=== PATIENT | female | born 1975 | race Caucasian/White ===

== ENCOUNTER 2020-10-29 11:13 | Emergency (ER) | payer SELFPAY ==
[2020-10-29 11:16] VITALS: BP 201/111; PULSE 88; RESP 18; TEMP 36.7; O2SAT 99; BMI 31.1
[2020-10-29 11:38] VITALS: BP 203/120; PULSE 92; RESP 16; TEMP 37.1; O2SAT 98
--- NOTE | 2020-10-29 11:46 | ED_ITS ---
HPI - Wound/Laceration General Chief Complaint: General Medical Stated Complaint: THUMB LACERATION Time Seen by Provider: 10/29/20 11:45 Source: patient Mode of arrival: ambulatory Limitations: no limitations History of Present Illness HPI narrative: 45-year-old female sustained an avulsion laceration to her left thumb approximately 2 days ago when she was peeling a Mandarin with a cutter. She reports that she was unable to take off the Band-Aid that she placed and came here for us to remove the Band-Aid. Denies any other symptoms complaints or concerns at this time. Related Data Allergies Allergy/AdvReac Type Severity Reaction Status Date / Time penicillin V Allergy Intermediate Unknown Verified 10/29/20 11:16 Review of Systems Review of Systems: Constitutional : No Fever, No Chills, Cardiovascular : No Chest Pain, No SOB Respiratory : No Dyspnea Gastrointestinal : No abdominal pain Musculoskeletal : No Joint Swelling Skin : positive skin laceration, No Foreign bodies, No rash, No surrounding erythema Neuro : No Weakness, No Numbness/tingling Psych : No SI/HI/thoughts of self injury Yes all other systems are reviewed and are negative [facility] Past Medical History Attestation statement: The following information was validated with the patient. Medical History No active medical problems Family History Family History Father HTN (hypertension) Mother No problems noted. Maternal Grandfather No problems noted. Maternal Grandmother No problems noted. Paternal Grandfather No problems noted. Paternal Grandmother No problems noted. Social History Social History Alcohol intake: current Advance Directives: Yes Advance Directives Information Provided: Yes Advance Directives on File: No Patient : No Physical Exam Vital Signs: Vital Signs: Last Vital Signs Temp 98.8 F 10/29/20 11:38 Pulse 92 10/29/20 11:38 Resp 16 10/29/20 11:38 BP 203/120 H 10/29/20 11:38 Pulse Ox 98 10/29/20 11:38 Body Mass Index 31.1 vital signs have been reviewed as normal and appeared to be correct. Blood pressure hypertensive 201/111 Heart rate normal. Respiration rate normal. Temperature normal. Oxygen saturation normal. Appearance: Alert. Oriented X3. No acute distress. Head: Normal external exam. Normocephalic. Atraumatic. Eyes: PERRLA. EOMI. Conjunctiva and sclera normal. Eyelids normal. ENT: EAC normal. TM's Normal. Pharynx normal. Uvula midline. Moist mucous membranes. . Neck: Normal inspection. Neck supple. FROM. No adenopathy. No meningeal signs. CVS: Normal heart rate and rhythm. Heart sound normal. Pulses normal throughout. No murmurs/rales/gallops. Respiratory: No respiratory distress. Painless inspiration. Back: Full range of motion noted. No rashes/lesion/induration/fluctuance or signs of infection noted. Skin: Superficial avulsion lacerations circular in aspect less than 1 cm to the radial aspect of the left thumb no active bleeding or foreign bodies or signs of infection noted. The rest of the Skin warm and dry. Normal skin color. Normal skin turgor. No additional rashes/lesions/lacerations noted. Extremities: Extremities exhibit normal range of motion. Extremities nontender. Neuro: Oriented X 3. No motor deficit. No sensory deficit. Reflexes normal. Normal steady gait. No focal neuro deficits noted. Vascular: + radial pulses. Normal cap refill. No cyanosis noted to upper extremity nails. Course Course Course Narrative: 45-year-old female presenting to the ED after an avulsion laceration to her left thumb approximately 2 days ago she was unable to remove the bandage at home. She is now status post removal after we soaked her finger and normal standing for approximately 20-30 minutes. She tolerated procedure well. She was noted to be hypertensive at 201/111 although she reports that usually when she comes to the hospital she is anxious and she is asymptomatic from this blood pressure and she denies being on any blood pressure medication. Will re-evaluate. She denies any other symptoms complaints or concerns at this time. Therefore at this time patient will be discharged with instructions to return if any new or worsening symptoms to follow up with primary care provider. Patient understands agrees with this plan. Discharge Plan Discharge Clinical Impression: Finger laceration Patient Disposition: Home, Self-Care Instructions: Finger Laceration (ED), Laceration Without Closure (ED) Referrals: Urbano Blevins FNP-BC [Primary Care Provider] - 2 days Print Language: Cymro
== END 2020-10-29 11:55 | disposition home or self-care (01) ==
PROVIDERS: Emergency Provider Emergency Medicine; PCP Nurse Practitioner Family
DX: S61.012A Laceration without foreign body of left thumb without damage to nail, initial encounter (principal); W27.4XXA Contact with kitchen utensil, initial encounter; Y93.89 Activity, other specified; Y92.019 Unspecified place in single-family (private) house as the place of occurrence of the external cause; Y99.9 Unspecified external cause status
CPT/HCPCS: 99283

== ENCOUNTER 2021-03-20 14:07 | Emergency (ER) | payer SELFPAY ==
[2021-03-20 14:19] VITALS: BP 155/111; PULSE 105; RESP 20; TEMP 36.9; O2SAT 100; BMI 31.1
== END 2021-03-20 19:16 | disposition left against medical advice (07) ==
PROVIDERS: Emergency Provider Emergency Medicine
DX: R10.9 Unspecified abdominal pain (principal); R20.0 Anesthesia of skin
CPT/HCPCS: 99281

== ENCOUNTER 2021-11-26 14:41 | Outpatient (REF) | payer OTHER, SELFPAY ==
--- NOTE | ~2021-11-26 | XR_ITS ---
EXAMINATION: XR HIP, RIGHT CLINICAL INFORMATION: Right hip pain. COMPARISON: CT of 02/15/2006. TECHNIQUE: Two views of the right hip. FINDINGS: There is no evidence of acute fracture or dislocation of the right hip. The right hip joint space is maintained. There is mild collar spurring. There is spurring with dystrophic calcification about the greater trochanter. XR/XR hip RT 1V IMPRESSION: 1. No significant abnormality of the right hip joint. 2. Calcification about the greater trochanter.
[2021-11-26 16:44] LABS: Appearance Urine Turbid; Color Urine Dark Yellow; Glucose Urine UA Negative (Negative); Leukocyte Esterase Urine Moderate (2+) (Negative); Nitrite Urine Negative (Negative); PH 5.5 (5.0-8.0); Specific Gravity - Urine >= 1.030 (1.005-1.025); Urine Blood Negative (Negative); Urine Ketones Trace mg/dL (Negative); Urine Protein 30 (1+) mg/dL (Neg-Trace)
[2021-11-26 18:14] LABS: Bacteria Urine 4+ (None Seen); Calcium Oxalate Crystals Urine Present; RBC Urine 0-2 /HPF (0-2); Squamous Epithelial Cell Urine >20 /HPF (0-2); UACC Culture Trigger YES; WBC Urine 21-50 /HPF (0-5); Waxy Casts Urine Present
[2021-11-26 18:20] LABS: Hyaline Casts Urine 0-2 /LPF (0-2)
== END 2021-11-26 14:42 | disposition home or self-care (01) ==
LOC: HO.XRAY 14:41
PROVIDERS: Absent Provider Nurse Practitioner Family; Visit Provider Physician Assistant
DX: M25.551 Pain in right hip (principal); R32 Unspecified urinary incontinence
CPT/HCPCS: 73501; 81001; 81003; 87086

== ENCOUNTER 2022-01-19 | Outpatient (REF) | payer OTHER, SELFPAY | END 2022-01-19 00:01 | disposition home or self-care (01) | LOC: HO.HOSX | PROVIDERS: Visit Provider Physician Assistant | DX: Z13.89 Encounter for screening for other disorder (principal) ==

== ENCOUNTER 2022-03-03 16:34 | Outpatient (REF) | payer OTHER, SELFPAY | END 2022-03-03 16:35 | disposition home or self-care (01) | LOC: HO.MRI 16:34 | PROVIDERS: Visit Provider Physician Assistant | DX: Z13.89 Encounter for screening for other disorder (principal) ==

== ENCOUNTER 2022-03-24 11:04 | Outpatient (REF) | payer OTHER, SELFPAY ==
--- NOTE | ~2022-03-24 | MR_ITS ---
EXAMINATION: MR BRAIN WITHOUT CONTRAST CLINICAL INFORMATION: Anoxic brain injury. COMPARISON: CT head from 05/27/2018. TECHNIQUE: MRI of the brain was obtained using routine sequences without contrast. FINDINGS: No focal restricted diffusion is demonstrated to suggest acute or subacute cerebral ischemia. No evidence of acute or chronic hemorrhagic products on heme-sensitive imaging. Mild nonspecific scattered periventricular and deep white matter T2 FLAIR hyperintensities consistent. Proportional prominence of the ventricles and sulcal spaces without evidence of obstructive hydrocephalus. No abnormal mass effect. No midline shift. Normal appearance of the pituitary gland. Normal positioning of the cerebellar tonsils. Normal arterial and venous vascular flow voids are present. Normal, homogeneous marrow signal. Mild degenerative spondyloarthropathy of the visualized upper cervical spine. Mild mucosal thickening of the paranasal sinuses. Small right-sided mastoid effusion. No signal abnormalities within the left-sided mastoid. MR/MR head/brain wo con IMPRESSION: 1. No acute intracranial abnormalities. 2. Nonspecific mild chronic white matter changes.
== END 2022-03-24 11:05 | disposition home or self-care (01) ==
LOC: HO.MRI 11:04
PROVIDERS: Visit Provider Physician Assistant
DX: G93.1 Anoxic brain damage, not elsewhere classified (principal)
CPT/HCPCS: 70551

== ENCOUNTER 2022-04-01 16:17 | Emergency (ER) | payer OTHER, SELFPAY ==
--- NOTE | ~2022-04-01 | XR_ITS ---
EXAMINATION: XR FOREARM, LEFT CLINICAL INFORMATION: Fall, humeral neck fracture COMPARISON: None TECHNIQUE: AP and lateral views of the left forearm were obtained. FINDINGS: The bones and soft tissues are normal. No fracture. Imaged portions of the elbow and wrist are unremarkable. XR/XR forearm LT 2V IMPRESSION: Normal left forearm.
--- NOTE | ~2022-04-01 | CT_ITS ---
EXAMINATION: CT HEAD WITHOUT CONTRAST CLINICAL INFORMATION: Fall, hit head, no memory COMPARISON: Brain MRI 03/24/2022, head CT 05/27/2018 TECHNIQUE: Imaging was performed from the skull base to vertex without intravenous administration of contrast. This CT examination was performed using dose optimization techniques as appropriate, variously including the following: *Automated exposure control *Adjustment of mA and/or kV according to patient size (this includes techniques or standardized protocols for targeted exams where dose is matched to indication/reason for exam; i.e. extremities or head) *Use of iterative reconstruction technique Total exam dose length product: 703 mGy-cm FINDINGS: No intra or extra-axial fluid collection, hemorrhage, or mass. No ventriculomegaly. No midline shift or herniation. Basal cisterns are patent. Beach-white matter differentiation is maintained. No territorial encephalomalacia. No significant volume loss. There is no abnormal attenuation within the brain parenchyma. No calvarial fracture or soft tissue abnormality. The mastoid air cells and visualized portions of the paranasal sinuses are well aerated. CT/CT head/brain wo IV con IMPRESSION: 1. No acute intracranial pathology.
--- NOTE | ~2022-04-01 | XR_ITS ---
EXAMINATION: XR SHOULDER, LEFT CLINICAL INFORMATION: Left shoulder pain status post fall. COMPARISON: None TECHNIQUE: Three views of the left shoulder. FINDINGS: There is an acute, mildly displaced left humeral surgical neck fracture with mild superomedial displacement of the distal fragment. The left glenohumeral and acromioclavicular joints are intact. The visualized left ribs are intact. The soft tissues are unremarkable. XR/XR shoulder LT min 2V IMPRESSION: Acute, mildly displaced left humeral surgical neck fracture.
--- NOTE | ~2022-04-01 | XR_ITS ---
EXAMINATION: LEFT ELBOW AND LEFT CLAVICLE CLINICAL INFORMATION: Fracture surgical neck humerus COMPARISON: Left shoulder 04/01/2022 at 5:16 PM TECHNIQUE: 2 views left clavicle and 2 views left elbow FINDINGS: Left elbow: There is no visible acute fracture, dislocation or subluxation seen. Left clavicle: There is a mildly displaced surgical neck fracture left humerus without dislocation. The AC joint and the sternal clavicular joints appear intact. The clavicle is intact. No fractures involving first left 4 ribs. XR/XR clavicle LT IMPRESSION: No abnormality seen involving the left elbow lower leg views are suboptimal due to left humeral neck fracture. Acute mildly displaced left humeral neck fracture. The clavicle, visualized scapula and first left 4 ribs are normal.
--- NOTE | ~2022-04-01 | XR_ITS ---
EXAMINATION: XR CHEST CLINICAL INFORMATION: Cough COMPARISON: None TECHNIQUE: Frontal view of the chest was obtained. FINDINGS: No significant abnormality is noted involving the heart, lungs, mediastinum, bony thorax or soft tissues. There is a left chest single lead cardiac ICD. Partial visualization of the left shoulder fracture. XR/XR chest 1V IMPRESSION: No acute disease. Please see the concurrently performed shoulder x-ray for additional information.
--- NOTE | ~2022-04-01 | XR_ITS ---
EXAMINATION: LEFT ELBOW AND LEFT CLAVICLE CLINICAL INFORMATION: Fracture surgical neck humerus COMPARISON: Left shoulder 04/01/2022 at 5:16 PM TECHNIQUE: 2 views left clavicle and 2 views left elbow FINDINGS: Left elbow: There is no visible acute fracture, dislocation or subluxation seen. Left clavicle: There is a mildly displaced surgical neck fracture left humerus without dislocation. The AC joint and the sternal clavicular joints appear intact. The clavicle is intact. No fractures involving first left 4 ribs. XR/XR elbow LT min 3V IMPRESSION: No abnormality seen involving the left elbow lower leg views are suboptimal due to left humeral neck fracture. Acute mildly displaced left humeral neck fracture. The clavicle, visualized scapula and first left 4 ribs are normal.
[2022-04-01 16:18] VITALS: BP 132/87; PULSE 89; RESP 18; TEMP 36.9; O2SAT 100; BMI 27.4
--- NOTE | 2022-04-01 16:23 | ED.FALL ---
HPI - Fall General Chief Complaint: Fall <Debbie Craig NP - Last Filed: 04/01/22 16:34> Stated Complaint: fall down stairs left arm pain 04/01 <Debbie Craig NP - Last Filed: 04/01/22 16:34> Time Seen by Provider: 04/01/22 16:48 <Debbie Craig NP - Last Filed: 04/01/22 16:34> Source: patient <PATEL Rutledge - Last Filed: 04/01/22 19:04> Mode of arrival: ambulatory <PATEL Rutledge - Last Filed: 04/01/22 19:04> History of Present Illness HPI Narrative: 47-year-old female with a past medical history of asthma, seizure disorder, VFib arrest with anoxic brain injury, ETOH abuse disorder, HTN, presenting to ED with mother complaining of left arm pain s/p fall down 3 stairs on (4 days ago). Patient does not remember fall (baseline), was unwitnessed. Unknown head trauma, mother denies LOC. mother also reports cough x months. Denies fever, chills, SOB/CP, abdominal pain, neck/back pain <PATEL Rutledge - Last Filed: 04/01/22 19:04> MD complaint: fall <PATEL Rutledge - Last Filed: 04/01/22 19:04> Onset (ago): day(s) <PATEL Rutledge - Last Filed: 04/01/22 19:04> Related Data Home Medications: Previous Rx's Medication Instructions Recorded cyclobenzaprine 5 mg tablet 5 mg PO BEDTIME PRN muscle spasm 10/28/21 #7 tabs albuterol sulfate 90 mcg/actuation 1 inh inhalation QID PRN shortness 01/28/22 aerosol inhaler of breath or wheezing 30 days #8.5 grams lisinopril 5 mg tablet 5 mg PO DAILY 90 days #90 tabs 01/28/22 miscellaneous medical supply #1 ea 01/28/22 (Blood Pressure Cuff) <Debbie Craig NP - Last Filed: 04/01/22 16:34> Allergies/Adverse Reactions: Allergies Allergy/AdvReac Type Severity Reaction Status Date / Time penicillin V Allergy Intermediate Unknown Verified 01/28/22 15:11 <Debbie Craig NP - Last Filed: 04/01/22 16:34> Review of Systems Review of Systems: Constitutional: No Fever Cardiovascular: No Chest Pain, No SOB Respiratory: + Cough, No Sputum Gastrointestinal: No Nausea, No Vomiting, No Abdominal pain Musculoskeletal: + joint pain, No Myalgias, + Joint Swelling Skin: No Skin Lesions, No rash Neuro: No Loss of Consciousness ROS limited due to patient's baseline mental status/memory loss. Most history obtained from mother <PATEL Rutledge - Last Filed: 04/01/22 19:04> Yes all other systems are reviewed and are negative <PATEL Rutledge - Last Filed: 04/01/22 19:04> Constitutional: Constitutional: Reports as per HPI <PATEL Rutledge - Last Filed: 04/01/22 19:04> [facility], [facility] Past Medical History Attestation statement: The following information was validated with the patient. <PATEL Rutledge - Last Filed: 04/01/22 19:04> Medical History: Medical History Alcohol withdrawal No active medical problems Ventricular fibrillation <Debbie Craig NP - Last Filed: 04/01/22 16:34> Family History Family History: Family History Father HTN (hypertension) Mother No problems noted. Maternal Grandfather No problems noted. Maternal Grandmother No problems noted. Paternal Grandfather No problems noted. Paternal Grandmother No problems noted. <Debbie Craig NP - Last Filed: 04/01/22 16:34> Social History Social History: Social History Alcohol intake: current Alcohol intake frequency: 3 or more drinks per day Alcohol type: beer Patient Tobacco Use Status: Current everyday Tobacco user Tobacco use type: Cigarette Cigarettes Per Day: 2 Advance Directives: Yes Advance Directives on File: Yes Advance Directives Date on File: 08/26/21 Current occupational status: disabled Cognitive needs: No Hearing needs: No Vision needs: No <Debbie Craig NP - Last Filed: 04/01/22 16:34> Physical Exam Vital Signs: Vital Signs: Last Vital Signs Temp 98.4 F 04/01/22 16:18 Pulse 89 04/01/22 16:18 Resp 18 04/01/22 16:18 BP 132/87 04/01/22 16:18 Pulse Ox 100 04/01/22 16:18 O2 Del Method 04/01/22 16:18 BMI result Body Mass Index 27.4 <Debbie Craig NP - Last Filed: 04/01/22 16:34> Vital Signs: Last Vital Signs Temp 98.4 F 04/01/22 16:18 Pulse 89 04/01/22 16:18 Resp 18 04/01/22 16:18 BP 132/87 04/01/22 16:18 Pulse Ox 100 04/01/22 16:18 O2 Del Method 04/01/22 16:18 BMI result Body Mass Index 27.4 <PATEL Rutledge - Last Filed: 04/01/22 19:04> Const: General: cooperative, comfortable and no acute distress <PATEL Rutledge - Last Filed: 04/01/22 19:04> Limitations: no limitations <PATEL Rutledge - Last Filed: 04/01/22 19:04> HEENT: Head: Yes normal to inspection, Yes atraumatic, No contusion and No hematoma <PATEL Rutledge - Last Filed: 04/01/22 19:04> Ears: hearing grossly normal bilaterally <PATEL Rutledge - Last Filed: 04/01/22 19:04> General nose exam: Normal external nose present <PATEL Rutledge - Last Filed: 04/01/22 19:04> Face and sinus: Yes normal facial exam <PATEL Rutledge - Last Filed: 04/01/22 19:04> Throat: Yes posterior oropharynx normal <PATEL Rutledge - Last Filed: 04/01/22 19:04> Eyes: General: appearance normal, both eyes and all related structures <PATEL Rutledge - Last Filed: 04/01/22 19:04> EOM: EOMs intact bilaterally <Courtney Poulrickyt, PA - Last Filed: 04/01/22 19:04> Neck: Neck: Yes normal visual inspection and Yes no meningeal signs <Courtney Poulrickyt, PA - Last Filed: 04/01/22 19:04> Chest: Chest palpation & inspection: normal inspection of the chest and no crepitus <Courtney Poulrickyt, PA - Last Filed: 04/01/22 19:04> Resp: Effort & Inspection: normal respiratory effort and no respiratory distress <Courtney Pouliot, PA - Last Filed: 04/01/22 19:04> Auscultation: clear to auscultation bilaterally, no crackles, no rales and no rhonchi <Courtney Pouliot, PA - Last Filed: 04/01/22 19:04> Cardio: Rate: regular rate <Courtney Poulrickyt, PA - Last Filed: 04/01/22 19:04> Heart sounds: S1 normal heart sound present and S2 normal heart sound present <Courtney Poulrickyt, PA - Last Filed: 04/01/22 19:04> GI: Inspection: Yes normal to inspection <Courtney Poulrickyt, PA - Last Filed: 04/01/22 19:04> Palpation (GI): Soft to palpation, nontender, no guarding and not rigid <Courtney Poulrickyt, PA - Last Filed: 04/01/22 19:04> Back/Spine/Pelvis: Other: No midline thoracic/lumbar spinous tenderness/step-off or deformity <Courtney Poulrickyt, PA - Last Filed: 04/01/22 19:04> Skin: Rashes: no rashes <Courtney Poulrickyt, PA - Last Filed: 04/01/22 19:04> Wounds: no wounds <Courtney Poulrickyt, PA - Last Filed: 04/01/22 19:04> Neuro: General: gait normal, tone normal, moves all extremities and no meningeal signs <Courtney Poulrickyt, PA - Last Filed: 04/01/22 19:04> Gait exam (Neuro): Normal gait present <Courtney Poulrickyt PA - Last Filed: 04/01/22 19:04> Extrem: Other: Left shoulder with notable swelling and healing ecchymosis. Very tender to palpation. Limited ROM to RUE secondary to pain. Neurovascular intact distally. + tenderness to humerus & elbow. Hand/digits nontender <PATEL Rutledge - Last Filed: 04/01/22 19:04> Course Course Course Narrative: This is a rapid medical exam. Deferred additional HPI, ROS, PE to primary provider. This is a 47-year-old female with history of asthma, seizure disorder, history of VFib arrest anoxic brain injury, history of alcohol use disorder with dependency, hypertension who presents with complaints of fall. Per patient she fell down a flight of stairs today. Patient has poor memory secondary to her underlying brain injury. She cannot recall the mechanism of injury. She reports left shoulder pain and headache. She believe she may have hit her head. Unsure about loss of consciousness. Vitals are stable. Will check x-rays left shoulder, CT head. <Debbie Craig NP - Last Filed: 04/01/22 16:34> This is a rapid medical exam. Deferred additional HPI, ROS, PE to primary provider. This is a 47-year-old female with history of asthma, seizure disorder, history of VFib arrest anoxic brain injury, history of alcohol use disorder with dependency, hypertension who presents with complaints of fall. Per patient she fell down a flight of stairs today. Patient has poor memory secondary to her underlying brain injury. She cannot recall the mechanism of injury. She reports left shoulder pain and headache. She believe she may have hit her head. Unsure about loss of consciousness. Vitals are stable. Will check x-rays left shoulder, CT head. -1833--head CT and chest x-ray unremarkable XR clavicle LT/XR elbow LT min 3V IMPRESSION: No abnormality seen involving the left elbow lower leg views are suboptimal due to left humeral neck fracture. ? Acute mildly displaced left humeral neck fracture. The clavicle, visualized scapula and first left 4 ribs are normal.? >>> patient placed in sling, is to follow-up with orthopedics XR shoulder LT min 2V IMPRESSION: Acute, mildly displaced left humeral surgical neck fracture. XR forearm LT 2V IMPRESSION: Normal left forearm. <PATEL Rutledge - Last Filed: 04/01/22 19:04> Medications Administered Discontinued Medications Generic Name Dose Route Start Last Admin Trade Name Freq PRN Reason Stop Dose Admin Acetaminophen 650 mg 04/01/22 17:26 04/01/22 18:08 Acetaminophen 325 Mg Tablet PO 04/01/22 17:27 650 mg ONCE ONE Administration <Debbie Craig NP - Last Filed: 04/01/22 16:34> Medications Administered Discontinued Medications Generic Name Dose Route Start Last Admin Trade Name Freq PRN Reason Stop Dose Admin Acetaminophen 650 mg 04/01/22 17:26 04/01/22 18:08 Acetaminophen 325 Mg Tablet PO 04/01/22 17:27 650 mg ONCE ONE Administration <PATEL Rutledge - Last Filed: 04/01/22 19:04> Procedures Orthopedic Splinting/Casting Injury #1: Side: left <PATEL Rutledge - Last Filed: 04/01/22 19:04> Upper Extremity Injury Location: shoulder <PATEL Rutledge - Last Filed: 04/01/22 19:04> Upper Extremity Immobilizer: sling/shoulder immobilizer <PATEL Rutledge - Last Filed: 04/01/22 19:04> Medical Decision Making Medical Decision Making MDM Narrative: 47-year-old female with a past medical history of asthma, seizure disorder, VFib arrest with anoxic brain injury, ETOH abuse disorder, HTN, presenting to ED with mother complaining of left arm pain s/p fall down 3 stairs on . On exam vital signs stable, NAD, at baseline mental status, physical exam as noted above. No focal deficits. Concern for humeral/clavicle or elbow fracture. Rule out ICH. Concern for viral illness. Rule out pneumonia. Low suspicion for ACS/PE or other infectious etiology Plan: Head CT, x-rays Please refer to course for remaining clinical decision making, interpretation of labs/imaging results, and discussions with consultants and/or family members.b <PATEL Rutledge - Last Filed: 04/01/22 19:04> Differential Diagnosis Differential Diagnoses: The differential diagnosis associated with the presentation includes <PATEL Rutledge - Last Filed: 04/01/22 19:04> As above <PATEL Rutledge - Last Filed: 04/01/22 19:04> Discharge Plan Discharge Clinical Impression: Closed fracture of surgical neck of left humerus <Debbie Craig NP - Last Filed: 04/01/22 16:34> Patient Disposition: Home, Self-Care <Debbie Craig NP - Last Filed: 04/01/22 16:34> Instructions: Arm Fracture in Adults (ED) <Debbie Craig NP - Last Filed: 04/01/22 16:34> Additional Instructions: You have a mildly displaced left humeral surgical neck fracture Please wear sling at all times, may take after shower. You need to follow-up with Orthopedics, call to make an appointment in 1 week. Ice. Elevate. Take Tylenol and Motrin as needed for pain. If symptoms persist or worsen or pain becomes unbearable return to the emergency department <Debbie Craig NP - Last Filed: 04/01/22 16:34> Prescriptions: No Action cyclobenzaprine 5 mg tablet 5 mg PO BEDTIME PRN (Reason: muscle spasm) Qty: 7 0RF albuterol sulfate 90 mcg/actuation HFA aerosol inhaler 1 inh inhalation QID PRN (Reason: shortness of breath or wheezing) 30 Days Qty: 8.5 3RF lisinopril 5 mg tablet 5 mg PO DAILY 90 Days Qty: 90 2RF (DME) Blood Pressure Cuff Misc See Rx Instructions .ROUTE .MEDSUPPLY Qty: 1 0RF Rx Instructions: As directed <Debbie Craig NP - Last Filed: 04/01/22 16:34> Referrals: [facility] [Provider Group] - 1 week <GRIFFIN Tai Last Filed: 04/01/22 16:34>
[2022-04-01] MEDS: Acetaminophen 325 MG TABLET 650 MG PO (18:08)
[2022-04-01 19:35] VITALS: BP 157/90; PULSE 88; RESP 20; TEMP 36.9; O2SAT 99
== END 2022-04-01 19:46 | disposition home or self-care (01) ==
PROVIDERS: Emergency Provider Emergency Medicine; PCP Physician Assistant
DX: S42.212A Unspecified displaced fracture of surgical neck of left humerus, initial encounter for closed fracture (principal); W10.9XXA Fall (on) (from) unspecified stairs and steps, initial encounter; Y93.9 Activity, unspecified; Y92.9 Unspecified place or not applicable; Y99.9 Unspecified external cause status; F17.210 Nicotine dependence, cigarettes, uncomplicated
CPT/HCPCS: 70450; 71045; 73000; 73030; 73080; 73090; 99283; 99284

== ENCOUNTER 2022-04-12 16:29 | Outpatient (REF) | payer OTHER, SELFPAY | END 2022-04-12 16:30 | disposition home or self-care (01) | LOC: HO.HOSX 16:29 | PROVIDERS: Visit Provider Physician Assistant | DX: Z13.89 Encounter for screening for other disorder (principal) ==

== ENCOUNTER 2022-04-19 09:14 | Outpatient (REF) | payer OTHER, SELFPAY ==
--- NOTE | ~2022-04-19 | XR_ITS ---
EXAMINATION: XR SHOULDER, LEFT CLINICAL INFORMATION: Pain. COMPARISON: Radiographs dated 04/01/2022. TECHNIQUE: AP neutral and scapular Y views of the left shoulder. FINDINGS: There is stable alignment of a displaced fracture of the proximal left femoral neck. The distal fracture fragment shows anterior displacement by one shaft width and medial displacement by one quarter shaft width. There is new callus formation. No dislocation is seen. The acromioclavicular and coracoclavicular intervals are normal. There is no foreign body. No left pneumothorax is seen. A pacemaker impulse generator and intact proximal lead are noted. XR/XR shoulder LT min 2V IMPRESSION: There is stable alignment of a displaced fracture of the left humeral neck. There is new callus formation.
== END 2022-04-19 09:15 | disposition home or self-care (01) ==
LOC: HO.HOSX 09:14
PROVIDERS: Visit Provider Physician Assistant
DX: S42.202A Unspecified fracture of upper end of left humerus, initial encounter for closed fracture (principal)
CPT/HCPCS: 73030; 99202

== ENCOUNTER 2022-05-20 15:09 | Outpatient (REF) | payer OTHER, SELFPAY ==
--- NOTE | ~2022-05-20 | XR_ITS ---
EXAMINATION: XR SHOULDER, LEFT CLINICAL INFORMATION: Pain in left shoulder. COMPARISON: . TECHNIQUE: Three views of the left shoulder. FINDINGS: Displaced fracture of the proximal left humeral neck appears stable in alignment being displaced a full shaft width anteriorly and approximately a half shaft width medially. There is progressive callus formation. The acromioclavicular joint is intact. Left-sided pacer incompletely imaged. The imaged portion of the left lung is clear. XR/XR shoulder LT min 2V IMPRESSION: Stable alignment of the displaced left humeral neck fracture.
== END 2022-05-20 15:10 | disposition home or self-care (01) ==
LOC: HO.HOSX 15:09
PROVIDERS: Visit Provider Physician Assistant
DX: S42.202D Unspecified fracture of upper end of left humerus, subsequent encounter for fracture with routine healing (principal); X58.XXXD Exposure to other specified factors, subsequent encounter; Z79.899 Other long term (current) drug therapy
CPT/HCPCS: 73030

== ENCOUNTER 2022-06-30 10:47 | Outpatient (REF) | payer OTHER, SELFPAY ==
[2022-06-30 11:03] LABS: Hematocrit 52.9 % (37.0-47.0); Hemoglobin 17.7 g/dl (12.0-16.0); Mean Corpuscular HGB Conc 33.5 g/dl (31.0-35.0); Mean Corpuscular Hemoglobin 30.8 pg (27.0-33.0); Mean Platelet Volume 9.2 fL (9.4-12.3); Platelet Count 286 X10*3/uL (160-400); Red Blood Count 5.75 X10*6/uL (4.20-5.50); Red Cell Distribution Width 13.8 % (11.0-16.0); White Blood Count 4.4 X10*3/uL (4.8-10.8)
[2022-06-30 11:07] LABS: Ammonia 32 umol/L (13-55)
[2022-06-30 11:41] LABS: Alanine Aminotransferase 14 U/L (0-31); Albumin Level 4.3 g/dL (3.5-5.0); Alkaline Phosphatase 78 U/L (39-117); Anion Gap 13 (12-20); Aspartate Amino Transferase 16 U/L (5-31); Bilirubin Total 0.7 mg/dL (0.0-1.0); Blood Urea Nitrogen 10 mg/dL (9-16); Calcium 9.7 mg/dL (8.4-10.2); Carbon Dioxide 30 mmol/L (22-29); Chloride 106 mmol/L (96-108); Cholesterol 231 mg/dL; Estimated Glomerular Filt Rate > 60; Glucose Fasting 94 mg/dL (60-99); HDL Cholesterol 97 mg/dL; LDL Cholesterol Calculated 110 mg/dl; Potassium 4.4 mmol/L (3.3-5.1); Sodium 145 mmol/L (135-145); Total Protein 7.2 g/dL (6.5-8.0); Triglycerides 123 mg/dL
[2022-06-30 12:10] LABS: Folate 3.2 ng/mL (> or = 4.0); TSH reflex Free T4 1.11 uIU/mL (0.32-4.0); Vitamin B12 249 pg/mL (200-900)
== END 2022-06-30 10:48 | disposition home or self-care (01) ==
LOC: HO.LAB 10:47
PROVIDERS: PCP Physician Assistant; Visit Provider Physician Assistant
DX: I10 Essential (primary) hypertension (principal); G93.1 Anoxic brain damage, not elsewhere classified; E53.8 Deficiency of other specified B group vitamins; F10.21 Alcohol dependence, in remission
CPT/HCPCS: 36415; 80053; 80061; 82140; 82607; 82746; 84443; 85027

== ENCOUNTER 2022-07-02 05:35 | Outpatient (REF) | payer OTHER, SELFPAY ==
--- NOTE | ~2022-07-02 | XR_ITS ---
EXAMINATION: XR SHOULDER, LEFT CLINICAL INFORMATION: Left shoulder pain COMPARISON: Left shoulder 05/20/2022 TECHNIQUE: 2 views of the left shoulder. FINDINGS: The glenohumeral and AC joint space is maintained. There is old healed left shoulder fracture with hypertrophic bony changes. XR/XR shoulder LT min 2V IMPRESSION: Old healed proximal left ureteral neck fracture, stable. There is hypertrophic bony changes along the lateral humeral neck. No dislocation.
[2022-07-02 15:59] LABS: Creatinine Urine 146.01 mg/dL; Microalbum/Creatinine Ratio Ur 9.5 ug/mg cr
== END 2022-07-02 05:36 | disposition home or self-care (01) ==
LOC: HO.HOSX 05:35
PROVIDERS: Physician Assistant; Visit Provider Physician Assistant
DX: S42.202D Unspecified fracture of upper end of left humerus, subsequent encounter for fracture with routine healing (principal); I10 Essential (primary) hypertension; X58.XXXD Exposure to other specified factors, subsequent encounter
CPT/HCPCS: 73030; 82043

== ENCOUNTER → 2022-07-21 14:55 | Outpatient (BNVA) | payer OTHER, SELFPAY | PROVIDERS: PCP Physician Assistant; Visit Provider Nurse Practitioner Family | DX: R32 Unspecified urinary incontinence (principal); I49.01 Ventricular fibrillation; F10.939 Alcohol use, unspecified with withdrawal, unspecified; F17.210 Nicotine dependence, cigarettes, uncomplicated; Z95.810 Presence of automatic (implantable) cardiac defibrillator | CPT/HCPCS: 51798; 99202 ==

== ENCOUNTER 2022-08-13 14:44 | Outpatient (REF) | payer OTHER, SELFPAY ==
--- NOTE | ~2022-08-13 | US_ITS ---
EXAMINATION: US RETROPERITONEAL COMPLETE (RENAL) CLINICAL INFORMATION: Urge incontinence. COMPARISON: Ultrasound abdomen complete dated 02/16/2006. CT of abdomen without contrast dated 02/15/2006. TECHNIQUE: Real-time imaging of the kidneys and bladder. FINDINGS: RIGHT KIDNEY: 10.0 x 4.5 x 5.5 cm (SAG x AP x TRV). The kidney is normal in size, contour, and echogenicity. Renal cortical thickness is normal. No calculi or focal parenchymal lesions. No hydronephrosis. LEFT KIDNEY: 10.7 x 5.4 x 4.0 cm (SAG x AP x TRV). The kidney is normal in size, contour, and echogenicity. Renal cortical thickness is normal. No calculi or focal parenchymal lesions. No hydronephrosis. BLADDER: Partially distended. Bilateral ureteral jets are demonstrated. Prevoid bladder volume is 112.7 mL. Postvoid bladder volume is 10.9 mL. INCIDENTAL FINDING: Within the right hepatic lobe there is a 1.2 cm echogenic focus adjacent to a vascular structure which is nonspecific but may represent a small hemangioma. US/US retroperitoneal comp IMPRESSION: 1. Unremarkable sonographic imaging of the kidneys and bladder. Specifically, no renal calculi or hydronephrosis of either kidney. 2. Within the right hepatic lobe there is a 1.2 cm echogenic focus adjacent to a vascular structure which is nonspecific but may represent a small hemangioma. Further evaluation can be obtained with dedicated abdominal ultrasound if clinically indicated.
== END 2022-08-13 14:45 | disposition home or self-care (01) ==
LOC: HO.US 14:44
PROVIDERS: PCP Physician Assistant; Visit Provider Nurse Practitioner Family
DX: N39.41 Urge incontinence (principal)
CPT/HCPCS: 76770

== ENCOUNTER → 2022-09-06 15:34 | Outpatient (BNVA) | payer OTHER, SELFPAY | PROVIDERS: PCP Physician Assistant; Visit Provider Nurse Practitioner Family | DX: N39.41 Urge incontinence (principal) | CPT/HCPCS: 51798; 99212 ==

== ENCOUNTER 2022-12-14 15:00 | Outpatient (RCR) | payer OTHER, SELFPAY ==
--- NOTE | 2022-08-06 09:05 | MHC.PT.EP ---
[facility] [place] Office [place] Office [place] Office [address] [phone] F: [phone] F: [phone] F: [phone] F: [phone] Physical Therapy Plan of Care Date of Evaluation: Date of Surgery: Diagnosis: (healed) closed fracture of LEFT proximal humerus (MD Dx) LEFT adhesive capsulitis (PT Dx) Assessment: Patient is a 47 y.o. female who is referred to PT by Erich SWEENEY, with Dx of (healed) closed fracture of LEFT proximal humerus. Her rehab is complicated by deficits from prior brain injury which may effect cognition. As well as she has developed LEFT adhesive capsulitis. Patient impairments include pain, weakness, limited ROM, poor posture. Patient current functional limitations are reaching overhead, reaching behind back, doing her hair, lifting anything with L UE. Patient will benefit from skilled PT to address aforementioned impairments and functional limitations to meet established goals. Frequency and Duration: The patient will be seen 1x/week for 4 weeks Short Term Goals: 2 weeks Patient demonstrates consistency and independence with HEP to self manage symptoms. Patient presents with increased L shoulder ER 50 degrees to be able to put on bra/undergarments. [employer] Goals: 4 weeks Patient presents with increased L shoulder flexion AROM 120 degrees to be able to reach to wash her hair. Patient presents with increased L shoulder flexion strength 4-/5 to be able to lift/carry grocery bag in L hand. Treatment Plan: Modalities to reduce pain, spasms and effusion. Manual therapy to restore motion and function. Therapeutic exercise to improve strength and flexibility. Neuromuscular re-education for posture and balance. Therapeutic activities to return to functional activities of daily living. Electronically signed by: Sobia Rowe, PT, DPT Please sign and return to therapist. Thank you for your referral.
--- NOTE | 2023-02-22 11:42 | MHC.PT.DC ---
[facility] [place] Office [place] Office [place] Office [address] [phone] F: [phone] F: [phone] F: [phone] F: [phone] Physical Therapy Discharge Report Diagnosis: (healed) closed fracture of LEFT proximal humerus (MD Dx) LEFT adhesive capsulitis (PT Dx) Date of Surgery: Date of Evaluation: 08/05/22 Date of Discharge: 02/22/23 Treatments to Date: 10 Cancellations to Date: 5 No Shows to Date: 1 Discharge Status: Independent with HEP Discharge Summary: Sara was treated in PT with manual therapy, modalities and exercise. She showed gradual improvements in ROM and strength in L UE, but still limited with difficulty with ADLs. She is appropriate to continue with independent HEP to make continued gains over time. She ceased attending on her own accord and is discharged from PT at this time. Electronically signed by: Sobia Rowe, PT, DPT Please sign and return to therapist. Thank you for your referral.
== END 2023-02-22 11:42 | disposition home or self-care (01) ==
LOC: HO.PT 15:00
PROVIDERS: PCP Physician Assistant; Visit Provider Physician Assistant
DX: S42.202D Unspecified fracture of upper end of left humerus, subsequent encounter for fracture with routine healing (principal)
CPT/HCPCS: 97110; 97140; 97162

== ENCOUNTER 2023-03-23 15:19 | Outpatient (AMB) | payer OTHER, SELFPAY ==
--- NOTE | 2023-03-23 15:31 | MHC.PC.OV ---
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: No Accompanied by: Mother Allergies penicillin V Allergy (Intermediate, Verified 03/23/23 15:46) Unknown Medication List - Last Reconciled 03/23/23 by Indra Salmon PA-C lisinopril 10 mg PO DAILY 90 days miscellaneous medical supply (Blood Pressure Cuff) As directed Tobacco use date assessed: 06/17/22 Dental Screening Dental Screen Date: 03/23/23 Did you have a dental visit in the last 12 months?: Yes Did you have a dental problem in the last 6 months where you did not have access to dental care?: No Was dental information given to patient?: Patient has dentist HPI f/u HTN HPI Details Patient is a 48-year-old female here today for a follow-up visit on her chronic medical conditions.? Patient has a past medical history significant for asthma, seizure disorder, history of VFib arrest with anoxic brain injury, history of alcohol use disorder with dependency.? VERY POOR HISTORY PRESENTS WITH HER MOTHER WHOM IS ALSO A POOR HISTORIAN . . History of ventricular fibrillation: Implanted D fib--> unclear etiology to her VFib arrest though his fortunately revived at [facility] in 2021. Has no follow-up with cardiology at this time. She does have an implanted D fib though no reports of any discharges. Will try to set her up with tip banding machine operator here in [place] for monitoring .. Former smoker: Sara has stopped smoking as her mother will not by her cigarettes anymore. Unfortunately continues to drink alcohol on a daily basis. .. Urinary incontinence: Often has urinary incontinence. Does report lots of water as she has been thirsty. Will check for diabetes. She had follow-up with Urology, ultrasounds of kidneys and bladder without significant findings. Patient does have memory issue needs cuing on when to urinate. Anoxic brain injury:? Mother still continues to be concerned about Sara memory as she often needs cues to take showers and can barely take care of herself.. .. Hypertension:? Blood pressure acceptable today in office. At last visit we increased her lisinopril to 10 mg and blood pressure now better controlled .. Alcohol dependency:? Family and patient do admit to drinking 3-4 shots per day and are not interested in quitting at this time.? Explained the impaired to need for her not to drink alcohol for resolution of her anoxic injury. [facility] Medical History (Updated 03/24/23 @ 07:33 by Indra Salmon PA-C) Fracture of proximal end of left humerus Seizure disorder Alcohol withdrawal Ventricular fibrillation No active medical problems Family History Father HTN (hypertension) Mother No problems noted. Maternal Grandfather No problems noted. Maternal Grandmother No problems noted. Paternal Grandfather No problems noted. Paternal Grandmother No problems noted. Social History Housing: House Alcohol intake: current Alcohol intake frequency: 3 or more drinks per day Alcohol type: beer Patient Tobacco Use Status: Former Tobacco user Tobacco use type: Cigarette Cigarettes Per Day: 2 e-Cigarette/Vaping Use: Never Used Advance Directives Date on File: 08/26/21 service: No Current occupational status: disabled Cognitive needs: No Hearing needs: No Vision needs: No Questionnaire Thrive Questionnaire Date Thrive assessed: 06/17/22 HECTOR-7 AMB Questionnaire HECTOR-7 Date HECTOR - 7 assessed: 06/17/22 Source: Developed by Drs. Bello Cardona, Lala Tobar, Neeraj Mchugh and colleagues, with an educational lilliam from [employer]. Review of Systems Const Denies headache(s) Eyes Denies loss of vision ENT Denies vertigo, Denies dizziness, Denies headache(s) and Denies sore throat Card Denies chest pain, Denies leg edema and Denies lightheadedness Resp Denies cough, Denies hemoptysis and Denies wheezing GI Denies abdominal pain, Denies melena, Denies constipation, Denies diarrhea and Denies vomiting Denies urinary frequency, Denies dysuria and Reports urinary urgency Musc Denies arthralgias, Denies joint swelling, Denies numbness and Denies tingling Neuro Denies Abnormal speech present, Denies behavioral changes, Denies vertigo, Denies dizziness, Denies headache(s), Denies loss of vision, Denies memory loss, Denies numbness and Denies tingling Psych Denies anxiety, Denies behavioral changes, Denies depression, Denies memory loss and Denies panic attacks Arslan/Lymph Denies easy bleeding and Denies easy bruising Aller/Immun Denies wheezing Physical exam (Primary Care) Vital Signs: Last Vital Signs Pulse 75 03/23/23 15:40 Resp 16 03/23/23 15:40 BP 110/68 03/23/23 15:40 Pulse Ox 98 03/23/23 15:40 Oxygen Delivery Method Room Air 03/23/23 15:40 BMI result Body Mass Index 29.1 Tobacco/Smoking Status: Tobacco use Status Tobacco use date assessed 06/17/22 03/23/23 15:31 Patient Tobacco Use Status Former Tobacco user 03/23/23 15:53 Tobacco use type Cigarette 03/23/23 15:31 e-Cigarette/Vaping Use Never Used 03/23/23 15:31 Thrive Assessment: Date of Thrive Assessment Date Thrive assessed 06/17/22 03/23/23 15:31 Const General: healthy appearing, no acute distress, alert and awake Nutritional Appearance: well nourished Orientation/consciousness: oriented to person, oriented to place and oriented to time HENMT Ears: TM's normal bilaterally General nose exam: Normal nasal mucous membranes and turbinates present Eyes Conjunctivae: conjunctivae normal Sclerae: sclerae normal Pupils: Equal, round and reactive pupils present Neck Neck: Yes no lymphadenopathy and Yes no JVD Thyroid: Thyroid normal Carotids: no bruits Resp Effort & Inspection: normal respiratory effort and not tachypneic Auscultation: no crackles, no rales, no rhonchi and no wheezes Cardio Rate: regular rate Rhythm: regular rhythm Heart sounds: no murmurs and normal S1 and S2 GI Palpation (GI): Soft to palpation, nontender, no hepatomegaly and no splenomegaly Auscultation: normal bowel sounds Skin General skin exam: no rashes or lesions noted and dry skin Neuro General: oriented to person, oriented to place and oriented to time Cranial nerves: Yes Equal, round and reactive pupils present Speech: No Abnormal speech present Gait exam (Neuro): Normal gait present Motor exam (neuro): no tremor noted Extrem Right upper extremity: full ROM Left upper extremity: full ROM Right lower extremity: full ROM; no edema Left lower extremity: full ROM; no edema Psych Mental Status: mental status grossly normal Speech and movement: Normal speech and movement present Affect: normal affect Attitude: cooperative Thought process: Normal thought process present Assessment and Plan Assessment & Plan (1) HTN (hypertension): Code(s): I10 - Essential (primary) hypertension Qualifiers: Hypertension type: primary hypertension Qualified Code(s): I10 - Essential (primary) hypertension Plan: Patient's blood pressure well controlled with current dose of lisinopril. Goal blood pressure to remain below 140/90 (2) Asthma: Code(s): J45.909 - Unspecified asthma, uncomplicated Qualifiers: Asthma complication type: uncomplicated Asthma persistence: unspecified Asthma severity: mild Qualified Code(s): J45.909 - Unspecified asthma, uncomplicated Plan: Patient's family reports Sara has been having coughing fits. She is not smoking at all anymore. She does have a history of asthma thus will supply patient with an albuterol inhaler for her coughing fits and wheeze. (3) Polydipsia: Code(s): R63.1 - Polydipsia Plan: Does report polydipsia and polyuria. Has seen urology in the past for urinary frequency and incontinence though all workup was negative. Will check for diabetes for the polydipsia and polyuria. (4) Anoxic brain injury: Code(s): G93.1 - Anoxic brain damage, not elsewhere classified Plan: Continues to have memory issues and lives at home with her mother whom takes care of her. Mother seems to be getting older and more frail. Unclear if there is any other family involved in the care of Sara. Orders: Orders Hemoglobin A1c 03/23/23 R63.1 - Polydipsia Osmolality, Serum 03/23/23 R63.1 - Polydipsia Osmolality Urine 03/23/23 R63.1 - Polydipsia Medications: New albuterol sulfate 90 mcg/actuation 1 inh inhalation QID 30 days PRN 8.5 grams 3RF shortness of breath or wheezing J45.909 - Unspecified asthma, uncomplicated Refilled lisinopril 10 mg PO DAILY 90 days 90 tabs 1RF I10 - Essential (primary) hypertension Coding Level of Care Code Est Pt Level 4 (97815) Diagnoses Primary hypertension I10 Hypertension type: primary hypertension Mild asthma without complication, unspecified whether persistent J45.909 Asthma complication type: uncomplicated Asthma persistence: unspecified Asthma severity: mild Polydipsia R63.1 Anoxic brain injury G93.1
[2023-03-23 15:40] VITALS: BP 110/68; PULSE 75; RESP 16; O2SAT 98; BMI 29.1
== END 2023-03-23 16:03 | disposition home or self-care (01) ==
PROVIDERS: PCP Physician Assistant; Visit Provider Physician Assistant
DX: I10 Essential (primary) hypertension (principal); J45.909 Unspecified asthma, uncomplicated; G93.1 Anoxic brain damage, not elsewhere classified; R63.1 Polydipsia; Z87.891 Personal history of nicotine dependence
CPT/HCPCS: 99214

== ENCOUNTER → 2023-08-30 14:56 | Outpatient (RCR) | payer OTHER, SELFPAY | END | disposition home or self-care (01) | LOC: HO.OT 07-27 14:42 | PROVIDERS: PCP Physician Assistant; Visit Provider Physician Assistant | DX: S42.202A Unspecified fracture of upper end of left humerus, initial encounter for closed fracture (principal) ==

== ENCOUNTER 2023-09-27 15:45 | Outpatient (AMB) | payer OTHER, SELFPAY ==
[2023-09-27 15:47] VITALS: BP 132/70; PULSE 40; O2SAT 98; BMI 27.8
--- NOTE | 2023-09-27 15:47 | MHC.PC.OV ---
Vital Signs 09/27/23 15:47 Height 5 ft 2 in Weight 152 lb BMI 27.8 BP 132/70 Blood Pressure Location Lt brachial Position Sitting Pulse 40 L Pulse Source Pulse Oximeter Pulse Oximetry (%) 98 Oxygen Delivery Method Room Air Intake Visit Reasons: Annual Exam- see comments Intake Note: Patient is here today for a physical. Acquisition Consultant Required: No Accompanied by: Wade-Designer Architect Allergies penicillin V Allergy (Intermediate, Verified 09/27/23 15:59) Unknown Medication List - Last Reconciled 09/27/23 by Indra Salmon PA-C albuterol sulfate 90 mcg/actuation 1 inh inhalation QID PRN 30 days lisinopril 10 mg PO DAILY 90 days miscellaneous medical supply (Blood Pressure Cuff) As directed Tobacco use date assessed: 09/27/23 Dental Screening Dental Screen Date: 09/27/23 Did you have a dental visit in the last 12 months?: Yes Did you have a dental problem in the last 6 months where you did not have access to dental care?: No Was dental information given to patient?: Patient has dentist HPI Annual Exam- see comments HPI Details Patient is a 48-year-old female here today for a routine annual physical. ? Patient has a past medical history significant for asthma, seizure disorder, history of VFib arrest with anoxic brain injury, history of alcohol use disorder with dependency.? VERY POOR HISTORY PRESENTS WITH HER MOTHER WHOM IS ALSO A POOR HISTORIAN . . History of ventricular fibrillation: Implanted D fib--> unclear etiology to her VFib arrest though his fortunately revived at [facility] in 2021. Has no follow-up with cardiology at this time. She does have an implanted D fib though no reports of any discharges. Will try to set her up with [facility] here in [place] for monitoring .. Former smoker: Sara has stopped smoking as her mother will not by her cigarettes anymore. Unfortunately continues to drink alcohol on a daily basis. .. Urinary incontinence: Often has urinary incontinence. Does report lots of water as she has been thirsty. Will check for diabetes. She had follow-up with Urology, ultrasounds of kidneys and bladder without significant findings. Patient does have memory issue needs cuing on when to urinate. Anoxic brain injury:? Mother still continues to be concerned about Sara memory as she often needs cues to take showers and can barely take care of herself.. .. Hypertension:? Blood pressure acceptable today in office. She continues on lisinopril 10 mg .. Alcohol dependency:? Family and patient do admit to drinking 3-4 shots per day and are not interested in quitting at this time.? Explained the impaired to need for her not to drink alcohol for resolution of her anoxic injury. 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 Maternal Grandfather No problems noted. Maternal Grandmother No problems noted. Paternal Grandfather No problems noted. Paternal Grandmother No problems noted. Social History (Updated 09/27/23 @ 16:06 by Indra Salmon PA-C) Housing: House Alcohol intake: current Alcohol intake frequency: 3 or more drinks per day Alcohol type: beer Patient Tobacco Use Status: Former Tobacco user Tobacco use type: Cigarette Cigarettes Per Day: 2 e-Cigarette/Vaping Use: Never Used Advance Directives Date on File: 08/26/21 service: No Current occupational status: disabled Cognitive needs: No Hearing needs: No Vision needs: No Questionnaire PHQ-9 Over the last 2 weeks, how often have you been bothered by any of the following problems? 1. Little interest or pleasure in doing things: not at all 2. Feeling down, depressed, or hopeless: not at all 3. Trouble falling or staying asleep, or sleeping too much: not at all 4. Feeling tired or having little energy: not at all 5. Poor appetite or overeating: not at all 6. Feeling bad about yourself - or that you are a failure or have let yourself or your family down: not at all 7. Trouble concentrating on things, such as reading the newspaper or watching television: not at all 8. Moving or speaking so slowly that other people could have noticed. Or the opposite - being so fidgety or restless that you have been moving around a lot more than usual: not at all 9. Thoughts that you would be better off or of hurting yourself in some way: not at all Total score: 0 Depression Screening Interpretation: Negative Depression Screening Done: Yes 63162 - PHQ-9 Billing: Yes Source: Developed by Drs. Bello Cardona, Lala Tobar, Neeraj Mchugh and colleagues, with an educational lilliam from [employer]. Thrive Questionnaire Date Thrive assessed: 09/27/23 I am a: Patient What is your living situation today?: I have a steady place to live Within the past 12 months, did the food you bought not last and you didn't have the money to get more?: Never true Within the past 12 months, did you worry whether your food would run out before you got money to buy more?: Never true Do you have trouble paying for medicines?: No Do you have trouble getting transportation to medical appointments?: No Do you have trouble paying your heating and electricity bill?: No Do you have trouble taking care of your child, family member or friend?: No Do you have trouble with day-to-day activities such as bathing, preparing meals, shopping, managing finances, etc.?: No Are you currently unemployed and looking for a job?: No Are you interested in more education?: No Please select the resources that you would like help with: None Currently or been in a relationship where the following occur: no concerns reported THRIVE Score: 0 AUDIT C Alcohol Use Questionnaire (AUDIT-C) 1. How often do you have a drink containing alcohol?: 2-3 times a week 2. How many drinks containing alcohol do you have on a typical day when you are drinking?: 3 or 4 3. How often do you have six or more drinks on one occasion?: Less than monthly Total Score: 5 HECTOR-7 AMB Questionnaire HECTOR-7 Date HECTOR - 7 assessed: 09/27/23 Feeling nervous, anxious, or on edge: 0 = Not at all Not being able to stop or control worryin = Not at all Worrying too much about different things: 0 = Not at all Trouble relaxin = Not at all Being so restless that it is hard to sit still: 0 = Not at all Becoming easily annoyed or irritable: 0 = Not at all Feeling afraid as if something awful might happen: 0 = Not at all Total HECTOR-7 score (0-4 normal; 5-9 mild; 10-14 moderate; 15-21 severe): 0 Source: Developed by Drs. Bello Cardona, Lala Tobar, Neeraj Mchugh and colleagues, with an educational lilliam from [employer]. HECTOR-7 Assessment Billing HECTOR-7 Assessment Tool: HECTOR-7 Assessment 45331 Review of Systems Const Denies body aches, Denies chills, Denies excessive sweating, Denies fatigue, Denies fever(s) and Denies headache(s) Eyes Denies blurry vision ENT Denies dysphagia, Denies vertigo, Denies dizziness, Denies headache(s), Denies hearing loss and Denies tinnitus Card Denies chest pain, Denies chest pain with activity, Denies syncope, Denies irregular heart rhythm and Denies dyspnea Resp Denies chest congestion, Denies cough, Denies hemoptysis, Denies dyspnea and Denies wheezing GI Denies abdominal pain, Denies melena, Denies hematochezia, Denies coffee ground emesis, Denies dysphagia, Denies diarrhea, Denies nausea and Denies vomiting Denies urinary frequency, Denies dysuria, Denies urinary hesitancy and Denies urinary urgency Musc Denies arthralgias, Denies limited range of motion, Denies muscle cramps and Denies muscle weakness Skin/Breast Denies rash and Denies skin ulcer Neuro Denies Abnormal speech present, Denies confusion, Denies vertigo, Denies dizziness, Denies syncope, Denies headache(s), Denies memory loss and Denies seizure-like activity Psych Denies anxiety, Denies confusion, Denies depression, Denies memory loss, Denies panic attacks and Denies paranoia Endo Denies excessive sweating, Denies fatigue, Denies flushing, Denies polydipsia and Denies polyuria Aller/Immun Denies wheezing Physical exam (Primary Care) Vital Signs: Last Vital Signs Pulse 40 L 09/27/23 15:47 BP 132/70 09/27/23 15:47 Pulse Ox 98 09/27/23 15:47 Oxygen Delivery Method Room Air 06/25/24 15:47 BMI result Body Mass Index 27.8 Tobacco/Smoking Status: Tobacco use Status Tobacco use date assessed 09/27/23 09/27/23 15:57 Patient Tobacco Use Status Former Tobacco user 09/27/23 16:06 Tobacco use type Cigarette 09/27/23 16:06 e-Cigarette/Vaping Use Never Used 09/27/23 16:06 PHQ-9: PHQ-9 Score PHQ-9: Total score 0 09/27/23 16:00 Depression Screening Interpretation: Negative Thrive Assessment: Date of Thrive Assessment Date Thrive assessed 09/27/23 09/27/23 15:54 Currently or been in a relationship where the following occur: no concerns reported Const General: cooperative, comfortable, no acute distress, alert and awake; No confusion Orientation/consciousness: oriented to person, oriented to place, patient oriented x3 and No confusion HENMT Head: Yes normocephalic Ears: external ears normal and TM's normal bilaterally Face and sinus: No sinus tenderness Mouth: Normal oral and palatal mucosa present and tongue normal Teeth and gingiva: dentition normal and gingiva normal Throat: Yes posterior oropharynx normal, Yes tonsils normal and Yes uvula midline Eyes Conjunctivae: conjunctivae normal Sclerae: sclerae normal Pupils: Equal, round and reactive pupils present EOM: EOMs intact bilaterally Direct Ophthalmoscopy: No no photophobia Neck Neck: Yes no lymphadenopathy, No tender and Yes no JVD Thyroid: Thyroid normal Carotids: no bruits Chest Chest palpation & inspection: no tenderness Resp Effort & Inspection: normal respiratory effort, no audible wheezes, not labored and no stridor Auscultation: no crackles, no rales, no rhonchi and no wheezes Cardio Jugular venous distension: no JVD Rate: regular rate, not bradycardic and not tachycardic Rhythm: regular rhythm Bruits: no carotid bruits Peripheral pulses: Peripheral pulses 2+ throughout GI Inspection: Yes normal to inspection, No abdominal wall ecchymosis and No visible herniation Palpation (GI): Soft to palpation, nontender, no guarding, not rigid and No hepatosplenomegaly present Auscultation: normoactive bowel sounds General: Yes no CVA tenderness Back/Spine/Pelvis Back: no CVA tenderness and No back tenderness Cervical Spine: cervical ROM normal Thoracic/Lumbar Spine: thoracic and lumbar spine normal to inspection, straight leg raise negative bilaterally, No thoraco-lumbar ROM limited and No lumbar spinal tenderness Skin Lesions: no lesions Rashes: no rashes Wounds: no wounds Neuro General: oriented to person, oriented to place, patient oriented x3, CN's II-XI intact bilaterally and No confusion Cranial nerves: Yes Equal, round and reactive pupils present and Yes Normal accommodation reflex present Cognition (Neuro): normal cognition Speech: No Abnormal speech present Gait exam (Neuro): Normal gait present Motor exam (neuro): 5/5 motor strength present throughout Extrem Right upper extremity: full ROM; no cyanosis Left upper extremity: full ROM; no cyanosis Right lower extremity: no edema Left lower extremity: no edema Psych Appearance: grossly normal Mental Status: mental status grossly normal Affect: normal affect Attitude: cooperative Thought process: Normal thought process present Assessment and Plan Assessment & Plan (1) Annual physical exam: Code(s): Z00.00 - Encounter for general adult medical examination without abnormal findings (2) HTN (hypertension): Code(s): I10 - Essential (primary) hypertension Qualifiers: Hypertension type: primary hypertension Qualified Code(s): I10 - Essential (primary) hypertension Plan: Patient's blood pressure well controlled with current dose of lisinopril. Goal blood pressure to remain below 140/90 (3) Asthma: Code(s): J45.909 - Unspecified asthma, uncomplicated Qualifiers: Asthma complication type: uncomplicated Asthma persistence: unspecified Asthma severity: mild Qualified Code(s): J45.909 - Unspecified asthma, uncomplicated Plan: Patient's family reports Sara has been having coughing fits. She is not smoking at all anymore. She does have a history of asthma thus will supply patient with an albuterol inhaler for her coughing fits and wheeze. (4) Polydipsia: Code(s): R63.1 - Polydipsia Plan: Does report polydipsia and polyuria. Has seen urology in the past for urinary frequency and incontinence though all workup was negative. Will check for diabetes for the polydipsia and polyuria. (5) Anoxic brain injury: Code(s): G93.1 - Anoxic brain damage, not elsewhere classified Plan: Continues to have memory issues and lives at home with her mother whom takes care of her. Mother seems to be getting older and more frail. Unclear if there is any other family involved in the care of Sara. (6) Cough: Code(s): R05.9 - Cough, unspecified Qualifiers: Cough type: subacute Qualified Code(s): R05.2 - Subacute cough (7) Colon cancer screening: Code(s): Z12.11 - Encounter for screening for malignant neoplasm of colon (8) Breast cancer screening: Code(s): Z12.39 - Encounter for other screening for malignant neoplasm of breast Qualifiers: Breast cancer screening modality: mammogram Qualified Code(s): Z12.31 - Encounter for screening mammogram for malignant neoplasm of breast Plan: Willing to get mammogram (9) Ventricular fibrillation: Comment: 04/22/21 Code(s): I49.01 - Ventricular fibrillation Plan: Patient has history of VFib arrest with resuscitation via CPR with [facility] in April 2021. Had an ICD placed by [facility] and has not had any discharges as per family. Seems patient does not have any cardiology (10) History of implantable cardioverter-defibrillator (ICD) placement: Code(s): Z95.810 - Presence of automatic (implantable) cardiac defibrillator Plan: As above Orders: Orders XR chest 2V 09/27/23 R05.9 - Cough, unspecified Comprehensive Emily. Panel Fast 09/27/23 I10 - Essential (primary) hypertension MM screening mammo BI 09/27/23 Z12.31 - Encounter for screening mammogram for malignant neoplasm of breast, Z12.39 - Encounter for other screening for malignant neoplasm of breast Referrals Cologuard Test Z12.11 - Encounter for screening for malignant neoplasm of colon Coding Level of Care Code Est Pt Prev Care 40-64y(88133) Diagnoses Annual physical exam Z00.00 Primary hypertension I10 Hypertension type: primary hypertension Mild asthma without complication, unspecified whether persistent J45.909 Asthma complication type: uncomplicated Asthma persistence: unspecified Asthma severity: mild Polydipsia R63.1 Anoxic brain injury G93.1 Subacute cough R05.2 Cough type: subacute Colon cancer screening Z12.11 Encounter for screening mammogram for malignant neoplasm of breast Z12.31 Breast cancer screening modality: mammogram Ventricular fibrillation I49.01 History of implantable cardioverter-defibrillator (ICD) placement Z95.810 Additional Codes HECTOR-7 Assessment Billing - HECTOR-7 Assessment Tool: HECTOR-7 Assessment 52136 ([id number])
== END 2023-09-27 16:20 | disposition home or self-care (01) ==
PROVIDERS: PCP Physician Assistant; Visit Provider Physician Assistant
DX: Z00.00 Encounter for general adult medical examination without abnormal findings (principal); G93.1 Anoxic brain damage, not elsewhere classified; I49.01 Ventricular fibrillation; I10 Essential (primary) hypertension; J45.909 Unspecified asthma, uncomplicated; R63.1 Polydipsia; R05.2 Subacute cough; Z12.11 Encounter for screening for malignant neoplasm of colon; Z12.31 Encounter for screening mammogram for malignant neoplasm of breast; Z95.810 Presence of automatic (implantable) cardiac defibrillator
CPT/HCPCS: 99396

== ENCOUNTER 2024-03-23 14:49 | Outpatient (REF) | payer OTHER, SELFPAY ==
--- OUTSIDE RECORDS SUMMARY | 2024-03-23 14:51 | XMS_ITS | Continuity of Care Document ---
Author Organization [facility] Address [address] [address]- Care Team Providers Care Home Restoration Service Cleaner Name Role Phone Not on Staff, PCP Primary Care Physician Unavail able Encounter [facility] Date(s): 02/23/24 - 03/01/24 [facility] [address] [address]- Attending Physician: Anna Amezquita Admitting Physician: Anna Amezquita Referring Physician: Anna Amezquita Encounter Type: Office Visit Allergies, Adverse Reactions, Alerts No Known Allergies Immunizations Given and Recorded Vaccine Date Status Refusal Reason SARS-CoV-2 (COVID-19) mRNA-1273 vaccine 10/19/20 R ecorded SARS-CoV-2 (COVID-19) mRNA-1273 vaccine 09/20/20 R ecorded Medications Acetaminophen = 325 mg, 0 Refills, Maintenance, 06/18/21 9:03:00 AM EDT, Partial fill upon patient request if the prescription is for a schedule II opioid drug. Start Date: 06/18/21 Status: Ordered Repeat number: 1 Aspirin Tablet 81 mg, By Mouth, Daily, Refills 0, Maintenance, 06/02/21 12:56:00 PM EST, Partial fill upon patient request if the prescription is for a schedule II opioid drug. Start Date: 06/02/21 Status: Ordered Repeat number: 1 bisacodyl 10 mg rectal suppository 1 supp = 10 mg, Rectally, Daily, PRN for constipation, # 10 supp, 0 Refills, Maintenance, 06/18/21 9:03:00 AM EDT, Suppository, Partial fill upon patient request if the prescription is for a schedule II opioid drug. Start Date: 06/18/21 Status: Ordered Quantity: 10.0 Unit: supp Repeat number: 1 Citrate of Magnesia 8.85% oral liquid 150 mL = 8.725 Gm, By Mouth, Once, # 300 mL, 0 Refills, Maintenance, 06/18/21 9:03:00 AM EDT, Liquid, Partial fill upon patient request if the prescription is for a schedule II opioid drug. Start Date: 06/18/21 Status: Ordered Quantity: 300.0 Unit: mL Repeat number: 1 divalproex sodium 250 mg oral enteric coated tablet = 250 mg, By Mouth, 3 times a day, 0 Refills, Maintenance, 06/02/21 12:56:00 PM EST, Tablet, Partial fill upon patient request if the prescription is for a schedule II opioid drug. Start Date: 06/02/21 Status: Ordered Repeat number: 1 Fleet Enema 19 gm-7 gm rectal enema 1 each, Rectally, Once, # 118 mL, 0 Refills, Maintenance, 06/18/21 9:03:00 AM EDT, Enema, Partial fill upon patient request if the prescription is for a schedule II opioid drug. Start Date: 06/18/21 Status: Ordered Quantity: 118.0 Unit: mL Repeat number: 1 folic acid 1 mg oral tablet 1 mg, 1, tablet, By Mouth, Daily, Refills 0, Maintenance, 06/02/21 12:56:00 PM EST, Partial fill uponpatient request if the prescription is for a schedule II opioid drug. Start Date: 06/02/21 Status: Ordered Repeat number: 1 Milk of Magnesia By Mouth, Daily at bedtime, 0 Refills, Maintenance, 06/18/21 9:03:00 AM EDT, Partial fill upon patient request if the prescription is for a schedule II opioid drug. Start Date: 06/18/21 Status: Ordered Repeat number: 1 Narcan 4 mg/0.1 mL nasal spray = 4 mg, Once, 0 Refills, Maintenance, 06/18/21 9:04:00 AM EDT, Partial fill upon patient request if the prescription is for a schedule II opioid drug. Start Date: 06/18/21 Status: Ordered Repeat number: 1 pyridoxine 50 mg oral tablet 50 mg, 1, tablet, By Mouth, Daily, Refills 0, Maintenance, 06/02/21 12:56:00 PM EST, Partial fill upon patient request if the prescription is for a schedule II opioid drug. Start Date: 06/02/21 Status: Ordered Repeat number: 1 thiamine 100 mg oral tablet 100 mg, 1, tablet, By Mouth, Daily, Refills 0, Maintenance, 06/02/21 12:56:00 PM EST, Partial fill upon patient request if the prescription is for a schedule II opioid drug. Start Date: 06/02/21 Status: Ordered Repeat number: 1 Patient Care team information Care Team Personnel Name: Porfirio Neff RN Position: [facility] RN Member Role: Primary Care Nurse Name: Irene Hammond RN Position: [facility] ED RN W/OE and Tasks Member Role: Primary Care Nurse Name: Yanira Crooks RN Position: [facility] RN Member Role: Primary Care Nurse Name: Zoë Trotter RN Position: [facility] AMB Nurse Member Role: Primary Care Nurse Name: Cierra Lujan RN Position: [facility] RN Member Role: Primary Care Nurse Name: Ria Seo RN Position: [facility] RN Member Role: Primary Care Nurse Name: Jessica Sharp RN Position: [facility] RN Member Role: Primary Care Nurse Name: Radha Madden RN Position: [facility] RN Member Role: Primary Care Nurse Name: Not on Staff, PCP Position: [facility] Physician (General Medicine) Member Role: PCP Name: Zofia Evans RN Position: [facility] AMB Nurse Member Role: Primary Care Nurse Care Team Related Persons Name: JOSE ANGEL ORIN Name: HARINDER WALTER Insurance Providers Guarantor name: NA Health Plan Information #: 1 Payer: [employer] Member Number: [id number] Policy Number: NA Group Number: NA Health Plan Information #: 2 Payer: [employer] Member Number: [id number] Policy Number: NA Group Number: NA
--- OUTSIDE RECORDS SUMMARY | 2024-03-23 14:51 | XMS_ITS | Continuity of Care Document ---
Author Organization [facility] Address [address] [address]- Care Team Providers Care Case Management Director Name Role Phone Not on Staff, PCP Primary Care Physician Unavail able Encounter [facility] Date(s): 02/20/24 - 02/27/24 [facility] [address] [address]- Attending Physician: Anna Amezquita Admitting Physician: Anna Amezquita Referring Physician: Anna Amezquita Encounter Type: One Time OP Allergies, Adverse Reactions, Alerts No Known Allergies [...] Team Personnel Name: Porfirio Neff RN Position: [facility] RN Member Role: Primary Care Nurse Name: Irene Hammond RN Position: [facility] ED RN W/OE and Tasks Member Role: Primary Care Nurse Name: Yanira Crooks RN Position: [facility] RN Member Role: Primary Care Nurse Name: Zoë Trotter RN Position: [facility] AMB Nurse Member Role: Primary Care Nurse Name: Cierra Lujan RN Position: [facility] RN Member Role: Primary Care Nurse Name: Ria Seo RN Position: [facility] RN Member Role: Primary Care Nurse Name: Jessica Sharp RN Position: [facility] RN Member Role: Primary Care Nurse Name: Radha Madden RN Position: [facility] RN Member Role: Primary Care Nurse Name: Not on Staff, PCP Position: [facility] Physician (General Medicine) Member Role: PCP Name: Zofia Evans RN Position: [facility] SN RN Member Role: Primary Care Nurse Care Team Related Persons Name: TOR WALTERHLEEN Name: HARINDER WALTER Insurance Providers Guarantor name: NA Health Plan Information #: 1 Payer: [employer] Member Number: [id number] Policy Number: NA Group Number: NA Health Plan Information #: 2 Payer: [employer] Member Number: [id number] Policy Number: NA Group Number: NA
[2024-03-23 15:47] LABS: Albumin Level 4.4 g/dL (3.5-5.0); Anion Gap 14 (12-20); Aspartate Amino Transferase 16 U/L (5-31); Bilirubin Total 0.4 mg/dL (0.0-1.0); Blood Urea Nitrogen 9 mg/dL (9-16); Calcium 9.9 mg/dL (8.4-10.2); Carbon Dioxide 28 mmol/L (22-29); Chloride 104 mmol/L (96-108); Estimated Glomerular Filt Rate > 60; Glucose Fasting 100 mg/dL (60-99); Potassium 3.8 mmol/L (3.3-5.1); Sodium 142 mmol/L (135-145); Total Protein 7.8 g/dL (6.5-8.0)
[2024-03-23 17:10] LABS: Alanine Aminotransferase 11 U/L (0-31); Alkaline Phosphatase 73 U/L (39-117)
== END 2024-03-23 14:50 | disposition home or self-care (01) ==
LOC: HO.XRAY 14:49
PROVIDERS: Physician Assistant; PCP Internal Medicine; Visit Provider Internal Medicine
DX: I10 Essential (primary) hypertension (principal); R05.9 Cough, unspecified
CPT/HCPCS: 36415; 71046; 80053

== ENCOUNTER 2024-03-29 15:31 | Outpatient (AMB) | payer OTHER, SELFPAY ==
--- OUTSIDE RECORDS SUMMARY | 2024-03-29 15:33 | XMS_ITS | Continuity of Care Document ---
Author Organization [facility] Address [address] [address]- [facility] Name Relationship Address Phone ORIN WALTER Unknown Unavailab le HARINDER WALTER mother Unknown Unavailab le Care Team Providers Care Cigar Head Perforator Name Role Phone Not on Staff, PCP Primary Care Physician Unavail able Encounter [facility] Date(s): 02/23/24 - 03/24/24 [facility] [address] [address]- Attending Physician: Viridiana Mcpherson Admitting Physician: Viridiana Mcpherson Referring Physician: AdmtrViridiana Encounter Type: Triage Allergies, Adverse Reactions, Alerts No Known Allergies [...] Team Personnel Name: Porfirio Neff RN Position: [facility] RN Member Role: Primary Care Nurse Name: Irene Hammond RN Position: [facility] ED RN W/OE and Tasks Member Role: Primary Care Nurse Name: Yanira Crooks RN Position: [facility] RN Member Role: Primary Care Nurse Name: Zoë Trotter RN Position: [facility] AMB Nurse Member Role: Primary Care Nurse Name: Cierra Lujan RN Position: [facility] RN Member Role: Primary Care Nurse Name: Ria Seo RN Position: [facility] RN Member Role: Primary Care Nurse Name: Jessica Sharp RN Position: [facility] RN Member Role: Primary Care Nurse Name: Radha Madden RN Position: [facility] RN Member Role: Primary Care Nurse Name: Not on Staff, PCP Position: [facility] Physician (General Medicine) Member Role: PCP Name: Zofia Evans RN Position: [facility] AMB Nurse Member Role: Primary Care Nurse Care Team Related Persons Name: ORIN WALTER Name: HARINDER WALTER Insurance Providers Guarantor name: [employer] Health Plan Information #: 1 Payer: [employer] Member Number: NA Policy Number: NA Group Number: NA
[2024-03-29 15:40] VITALS: BP 124/84; PULSE 70; O2SAT 99; BMI 28.9
--- NOTE | 2024-03-29 15:40 | MHC.PC.OV ---
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 Patient has a past medical history significant for asthma, seizure disorder, history of VFib arrest with anoxic brain injury, history of alcohol use disorder with dependency.? VERY POOR HISTORY PRESENTS WITH HER FAMILY MEMBER, MOTHER RECENTLY . History of ventricular fibrillation: Implanted D fib--> unclear etiology to her VFib arrest though his fortunately revived at [facility] in 2021. Has no follow-up with cardiology at this time. She does have an implanted D fib though no reports of any discharges. Will try to set her up with dispensary attendant here in [place] for monitoring . Chronic cough: Family has noted Sara to have a chronic cough. Otherwise no particular shortness of breath. Unclear if this is OCHOA related cough thus will transitioned to losartan 25 mg for blood pressure. Chest x-ray done in an awaiting results. Patient does have access to an albuterol inhaler will try to use this more often. Anoxic brain injury:? Sister continues to be concerned about Sara memory as she often needs cues to take showers and can barely take care of herself.. .. Hypertension:? Blood pressure acceptable today in office. She continues on lisinopril 10 mg .. Alcohol dependency:? Family and patient do admit to drinking 3-4 shots per day and are not interested in quitting at this time.? Explained the impaired to need for her not to drink alcohol for resolution of her anoxic injury. [facility] Medical History Fracture of proximal end of left humerus Seizure disorder Alcohol withdrawal Ventricular fibrillation No active medical problems Family History Father HTN (hypertension) Mother No problems noted. Maternal Grandfather No problems noted. Maternal Grandmother No problems noted. Paternal Grandfather No problems noted. Paternal Grandmother No problems noted. Social History Housing: House Alcohol intake: current Alcohol intake frequency: 3 or more drinks per day Alcohol type: beer Patient Tobacco Use Status: Former Tobacco user Tobacco use type: Cigarette Cigarettes Per Day: 2 e-Cigarette/Vaping Use: Never Used Advance Directives Date on File: 08/26/21 service: No Current occupational status: disabled Cognitive needs: No Hearing needs: No Vision needs: No Questionnaire Thrive Questionnaire Date Thrive assessed: 09/27/23 HECTOR-7 AMB Questionnaire HECTOR-7 Date HECTOR - 7 assessed: 09/27/23 Source: Developed by Drs. Bello Cardona, Lala Tobar, Neeraj Mchugh and colleagues, with an educational lilliam from [employer]. Review of Systems Const Denies headache(s) Eyes Denies loss of vision ENT Denies vertigo, Denies dizziness, Denies headache(s) and Denies sore throat Card Denies chest pain, Denies leg edema and Denies lightheadedness Resp Reports cough, Denies hemoptysis and Denies wheezing GI Denies abdominal pain, Denies melena, Denies constipation, Denies diarrhea and Denies vomiting Denies urinary frequency, Denies dysuria and Denies urinary urgency Musc Denies arthralgias, Denies joint swelling, Denies numbness and Denies tingling Neuro Denies Abnormal speech present, Denies behavioral changes, Denies vertigo, Denies dizziness, Denies headache(s), Denies loss of vision, Denies memory loss, Denies numbness and Denies tingling Psych Denies anxiety, Denies behavioral changes, Denies depression, Denies memory loss and Denies panic attacks Arslan/Lymph Denies easy bleeding and Denies easy bruising Aller/Immun Denies wheezing Physical exam (Primary Care) Vital Signs: Last Vital Signs Pulse 70 03/29/24 15:40 BP 124/84 03/29/24 15:40 Pulse Ox 99 03/29/24 15:40 Oxygen Delivery Method Room Air 03/29/24 15:40 BMI result Body Mass Index 28.9 Tobacco/Smoking Status: Tobacco use Status Tobacco use date assessed 09/27/23 03/29/24 15:41 Patient Tobacco Use Status Former Tobacco user 03/29/24 15:41 Tobacco use type Cigarette 03/29/24 15:41 e-Cigarette/Vaping Use Never Used 03/29/24 15:41 Thrive Assessment: Date of Thrive Assessment Date Thrive assessed 09/27/23 03/29/24 15:41 Const General: healthy appearing, no acute distress, alert and awake Nutritional Appearance: well nourished Orientation/consciousness: oriented to person, oriented to place and oriented to time HENMT Ears: TM's normal bilaterally General nose exam: Normal nasal mucous membranes and turbinates present Eyes Conjunctivae: conjunctivae normal Sclerae: sclerae normal Pupils: Equal, round and reactive pupils present Neck Neck: Yes no lymphadenopathy and Yes no JVD Thyroid: Thyroid normal Carotids: no bruits Resp Effort & Inspection: normal respiratory effort and not tachypneic Auscultation: no crackles, no rales, no rhonchi and no wheezes Cardio Rate: regular rate Rhythm: regular rhythm Heart sounds: no murmurs and normal S1 and S2 GI Palpation (GI): Soft to palpation, nontender, no hepatomegaly and no splenomegaly Auscultation: normal bowel sounds Skin General skin exam: no rashes or lesions noted and dry skin Neuro General: oriented to person, oriented to place and oriented to time Cranial nerves: Yes Equal, round and reactive pupils present Speech: No Abnormal speech present Gait exam (Neuro): Normal gait present Motor exam (neuro): no tremor noted Extrem Right upper extremity: full ROM Left upper extremity: full ROM Right lower extremity: full ROM; no edema Left lower extremity: full ROM; no edema Psych Mental Status: mental status grossly normal Speech and movement: Normal speech and movement present Affect: normal affect Attitude: cooperative Thought process: Normal thought process present Coding Level of Care Code Est Pt Level 4 (26542) Diagnoses Borderline high cholesterol E78.9 Primary hypertension I10 Hypertension type: primary hypertension Anoxic brain injury G93.1 History of implantable cardioverter-defibrillator (ICD) placement Z95.810 Cervical cancer screening Z12.4 Encounter for screening mammogram for malignant neoplasm of breast Z12.31 Breast cancer screening modality: mammogram Assessment & Plan Assessment & Plan (1) Borderline high cholesterol: Code(s): E78.9 - Disorder of lipoprotein metabolism, unspecified Category: Medical Plan: Has a history of borderline high total cholesterol. Will continue to follow fasting labs. Advised on low-cholesterol diet. (2) HTN (hypertension): Code(s): I10 - Essential (primary) hypertension Category: Medical Qualifiers: Hypertension type: primary hypertension Qualified Code(s): I10 - Essential (primary) hypertension Plan: Patient's blood pressure acceptable today in office. Has developed a dry cough noted by family. Will transition Ochoa to a Arb as I suspect she has a Ochoa related cough. Goal blood pressures to remain below 140/90 (3) Anoxic brain injury: Code(s): G93.1 - Anoxic brain damage, not elsewhere classified Category: Medical Plan: As per HPI patient suffered an anoxic brain injury several years ago due to an acute cardiac arrest. Has a sequelae secondary to this event including polydipsia, memory issues ect.. Does does have a lot of care from her family including her sister whom presents today with her in office. Has an ICD placed (4) History of implantable cardioverter-defibrillator (ICD) placement: Code(s): Z95.810 - Presence of automatic (implantable) cardiac defibrillator Category: Surgical Plan: As above (5) Cervical cancer screening: Code(s): Z12.4 - Encounter for screening for malignant neoplasm of cervix Category: Medical Plan: Is in need for Pap screening (6) Breast cancer screening: Code(s): Z12.39 - Encounter for other screening for malignant neoplasm of breast Category: Medical Qualifiers: Breast cancer screening modality: mammogram Qualified Code(s): Z12.31 - Encounter for screening mammogram for malignant neoplasm of breast Plan: Willing to do mammogram Orders: Orders Comprehensive [place]. Panel Fast Today I10 - Essential (primary) hypertension Microalbumin, Random (w Creat) Today I10 - Essential (primary) hypertension Lipid Panel Today E78.9 - Disorder of lipoprotein metabolism, unspecified MM screening mammo BI Today Z12.31 - Encounter for screening mammogram for malignant neoplasm of breast Referrals Gastroenterology Referral Z12.11 - Encounter for screening for malignant neoplasm of colon ASSURANCE MANAGER Referral Z12.4 - Encounter for screening for malignant neoplasm of cervix Medications: New losartan 25 mg PO DAILY 90 days 90 tabs 1RF I10 - Essential (primary) hypertension
== END 2024-03-29 16:00 | disposition home or self-care (01) ==
PROVIDERS: PCP Physician Assistant; Visit Provider Physician Assistant
DX: E78.9 Disorder of lipoprotein metabolism, unspecified (principal); I10 Essential (primary) hypertension; G93.1 Anoxic brain damage, not elsewhere classified; Z95.810 Presence of automatic (implantable) cardiac defibrillator; Z12.4 Encounter for screening for malignant neoplasm of cervix; Z12.31 Encounter for screening mammogram for malignant neoplasm of breast

== ENCOUNTER → 2024-03-29 15:31 | Outpatient (BNVA) | payer OTHER, SELFPAY | PROVIDERS: PCP Physician Assistant; Visit Provider Physician Assistant | DX: E78.9 Disorder of lipoprotein metabolism, unspecified (principal); I10 Essential (primary) hypertension; G93.1 Anoxic brain damage, not elsewhere classified; Z95.810 Presence of automatic (implantable) cardiac defibrillator | CPT/HCPCS: 99212 ==

== ENCOUNTER 2024-10-01 15:47 | Outpatient (AMB) | payer OTHER, SELFPAY ==
--- NOTE | 2024-10-01 15:49 | A.OFFPC_ITS ---
Vital Signs 10/01/24 15:51 Height 5 ft 2 in BP 112/82 Blood Pressure Location Lt brachial Position Sitting Pulse 66 Pulse Source Pulse Oximeter Temp 97.1 F Temp Source Temporal Artery Scan Pulse Oximetry (%) 97 Oxygen Delivery Method Room Air Intake Visit Reasons: Annual Exam Computer Lab Aide Required: No Accompanied by: Mother Allergies penicillin V Allergy (Intermediate, Verified 10/01/24 16:02) Unknown Medication List - Last Reconciled 10/01/24 by Indra Salmon PA-C albuterol sulfate 90 mcg/actuation 1 inh inhalation QID PRN 30 days losartan 25 mg PO DAILY 90 days miscellaneous medical supply (Blood Pressure Cuff) As directed Tobacco use date assessed: 09/27/23 Dental Screening Dental Screen Date: 09/27/23 HPI Annual Exam HPI Details Patient is a 49-year-old female here today for a annual physical. Today she presents with her sister whom takes care of Sara mostly cuing her to do all of her activities of daily living and brings her to all of her medical appointments. ? Patient has a past medical history significant for asthma, seizure disorder, history of VFib arrest with anoxic brain injury, history of alcohol use disorder with dependency.? VERY POOR HISTORY . History of ventricular fibrillation: Implanted D fib--> unclear etiology to her VFib arrest though his fortunately revived at [facility] in 2021. Has no follow-up with cardiology at this time. She does have an implanted D fib though no reports of any discharges. Will try to set her up with reactor service operator here in [place] for monitoring . Chronic cough: Family has noted Sara to have a chronic cough. Otherwise no particular shortness of breath. Unclear if this is OCHOA related cough thus will transitioned to losartan 25 mg for blood pressure. Recent chest x-ray without bronchitis or evidence interstitial lung disease. Patient does have access to an albuterol inhaler will try to use this more often. Anoxic brain injury:? Sister continues to be concerned about Sara memory as she often needs cues to take showers and can barely take care of herself.. .. Hypertension:? Blood pressure acceptable today in office. She continues on losartan 25 mg MAmmo: In need of breast cancer screening . Colon cancer screening: willing to do cologaurd VAccine: Willing to Get Tdap, Need PCV-20 PFSH Medical History Fracture of proximal end of left humerus Seizure disorder Alcohol withdrawal Ventricular fibrillation No active medical problems Family History Father HTN (hypertension) Mother No problems noted. Maternal Grandfather No problems noted. Maternal Grandmother No problems noted. Paternal Grandfather No problems noted. Paternal Grandmother No problems noted. Social History (Updated 10/01/24 @ 16:08 by Indra Salmon PA-C) Housing: House Alcohol intake: former Patient Tobacco Use Status: Former Tobacco user Tobacco use type: Cigarette Cigarettes Per Day: 2 e-Cigarette/Vaping Use: Never Used Advance Directives Date on File: 08/26/21 service: No Current occupational status: disabled Cognitive needs: No Hearing needs: No Vision needs: No Questionnaire PHQ-9 Over the last 2 weeks, how often have you been bothered by any of the following problems? 1. Little interest or pleasure in doing things: nearly every day 2. Feeling down, depressed, or hopeless: not at all 3. Trouble falling or staying asleep, or sleeping too much: not at all 4. Feeling tired or having little energy: not at all 5. Poor appetite or overeating: not at all 6. Feeling bad about yourself - or that you are a failure or have let yourself or your family down: not at all 7. Trouble concentrating on things, such as reading the newspaper or watching television: nearly every day 8. Moving or speaking so slowly that other people could have noticed. Or the opposite - being so fidgety or restless that you have been moving around a lot more than usual: not at all 9. Thoughts that you would be better off or of hurting yourself in some way: not at all Total score: 6 Depression Screening Interpretation: Positive Depression Screening Follow-up: Existing condition Depression Screening Done: Yes 62110 - PHQ-9 Billing: Yes Source: Developed by Drs. Bello Cardona, Lala Tobar, Neeraj Mchugh and colleagues, with an educational lilliam from [employer]. Thrive Questionnaire Date Thrive assessed: 10/01/24 I am a: Patient What is your living situation today?: I have a steady place to live Within the past 12 months, did the food you bought not last and you didn't have the money to get more?: Never true Within the past 12 months, did you worry whether your food would run out before you got money to buy more?: Never true Do you have trouble paying for medicines?: No Do you have trouble getting transportation to medical appointments?: No Do you have trouble paying your heating and electricity bill?: No Do you have trouble taking care of your child, family member or friend?: No Do you have trouble with day-to-day activities such as bathing, preparing meals, shopping, managing finances, etc.?: Yes Are you currently unemployed and looking for a job?: No Are you interested in more education?: No Please select the resources that you would like help with: None Currently or been in a relationship where the following occur: No concerns reported THRIVE Score: 0 AUDIT C Alcohol Use Questionnaire (AUDIT-C) 1. How often do you have a drink containing alcohol?: Never Total Score: 0 HECTOR-7 AMB Questionnaire HECTOR-7 Date HECTOR - 7 assessed: 10/01/24 Feeling nervous, anxious, or on edge: 0 = Not at all Not being able to stop or control worryin = Not at all Worrying too much about different things: 0 = Not at all Trouble relaxin = Not at all Being so restless that it is hard to sit still: 0 = Not at all Becoming easily annoyed or irritable: 0 = Not at all Feeling afraid as if something awful might happen: 0 = Not at all Total HECTOR-7 score (0-4 normal; 5-9 mild; 10-14 moderate; 15-21 severe): 0 Source: Developed by Drs. Bello Cardona, Lala Tobar, Neeraj Mchugh and colleagues, with an educational lilliam from [employer]. HECTOR-7 Assessment Billing HECTOR-7 Assessment Tool: HECTOR-7 Assessment 25989 Review of Systems Const Denies body aches, Denies chills, Denies excessive sweating, Denies fatigue, Denies fever(s) and Denies headache(s) Eyes Denies blurry vision ENT Denies dysphagia, Denies vertigo, Denies dizziness, Denies headache(s), Denies hearing loss and Denies tinnitus Card Denies chest pain, Denies chest pain with activity, Denies syncope, Denies irregular heart rhythm and Denies dyspnea Resp Denies chest congestion, Denies cough, Denies hemoptysis, Denies dyspnea and Denies wheezing GI Denies abdominal pain, Denies melena, Denies hematochezia, Denies coffee ground emesis, Denies dysphagia, Denies diarrhea, Denies nausea and Denies vomiting Denies urinary frequency, Denies dysuria, Denies urinary hesitancy and Denies ur inary urgency Musc Denies arthralgias, Denies limited range of motion, Denies muscle cramps and Denies muscle weakness Skin/Breast Denies rash and Denies skin ulcer Neuro Denies Abnormal speech present, Denies confusion, Denies vertigo, Denies dizziness, Denies syncope, Denies headache(s), Denies memory loss and Denies seizure-like activity Psych Denies anxiety, Denies confusion, Denies depression, Denies memory loss, Denies panic attacks and Denies paranoia Endo Denies excessive sweating, Denies fatigue, Denies flushing, Denies polydipsia and Denies polyuria Aller/Immun Denies wheezing Physical exam (Primary Care) Vital Signs: Last Vital Signs Temp 97.1 F 10/01/24 15:51 Pulse 66 10/01/24 15:51 BP 112/82 10/01/24 15:51 Pulse Ox 97 10/01/24 15:51 Oxygen Delivery Method Room Air 10/01/24 15:51 Tobacco/Smoking Status: Tobacco use Status Tobacco use date assessed 09/27/23 10/01/24 15:50 Patient Tobacco Use Status Former Tobacco user 10/01/24 16:08 Tobacco use type Cigarette 10/01/24 16:08 e-Cigarette/Vaping Use Never Used 10/01/24 16:08 PHQ-9: PHQ-9 Score PHQ-9: Total score 6 10/01/24 16:03 Depression Screening Interpretation: Positive Depression Screening Follow-up: Existing condition Thrive Assessment: Date of Thrive Assessment Date Thrive assessed 10/01/24 10/01/24 15:50 Currently or been in a relationship where the following occur: No concerns reported Const General: cooperative, comfortable, no acute distress, alert and awake; No confusion Orientation/consciousness: oriented to person, oriented to place, patient oriented x3 and No confusion HENMT Head: Yes normocephalic Ears: external ears normal and TM's normal bilaterally Face and sinus: No sinus tenderness Mouth: Normal oral and palatal mucosa present and tongue normal Teeth and gingiva: dentition normal and gingiva normal Throat: Yes posterior oropharynx normal, Yes tonsils normal and Yes uvula midline Eyes Conjunctivae: conjunctivae normal Sclerae: sclerae normal Pupils: Equal, round and reactive pupils present EOM: EOMs intact bilaterally Direct Ophthalmoscopy: No no photophobia Neck Neck: Yes no lymphadenopathy, No tender and Yes no JVD Thyroid: Thyroid normal Carotids: no bruits Chest Chest palpation & inspection: no tenderness Resp Effort & Inspection: normal respiratory effort, no audible wheezes, not labored and no stridor Auscultation: no crackles, no rales, no rhonchi and no wheezes Cardio Jugular venous distension: no JVD Rate: regular rate, not bradycardic and not tachycardic Rhythm: regular rhythm Bruits: no carotid bruits Peripheral pulses: Peripheral pulses 2+ throughout GI Inspection: Yes normal to inspection, No abdominal wall ecchymosis and No visible herniation Palpation (GI): Soft to palpation, nontender, no guarding, not rigid and No hepatosplenomegaly present Auscultation: normoactive bowel sounds General: Yes no CVA tenderness Back/Spine/Pelvis Back: no CVA tenderness and No back tenderness Cervical Spine: cervical ROM normal Thoracic/Lumbar Spine: thoracic and lumbar spine normal to inspection, straight leg raise negative bilaterally, No thoraco-lumbar ROM limited and No lumbar spinal tenderness Skin Lesions: no lesions Rashes: no rashes Wounds: no wounds Neuro General: oriented to person, oriented to place, patient oriented x3, CN's II-XI intact bilaterally and No confusion Cranial nerves: Yes Equal, round and reactive pupils present and Yes Normal accommodation reflex present Cognition (Neuro): normal cognition Speech: No Abnormal speech present Gait exam (Neuro): Normal gait present Motor exam (neuro): 5/5 motor strength present throughout Extrem Right upper extremity: full ROM; no cyanosis Left upper extremity: full ROM; no cyanosis Right lower extremity: no edema Left lower extremity: no edema Psych Appearance: grossly normal Mental Status: mental status grossly normal Affect: normal affect Attitude: cooperative Thought process: Normal thought process present Coding Level of Care Code Est Pt Prev Care 40-64y(69124) Diagnoses Annual physical exam Z00.00 Borderline high cholesterol E78.9 Primary hypertension I10 Hypertension type: primary hypertension Anoxic brain injury G93.1 History of implantable cardioverter-defibrillator (ICD) placement Z95.810 Cervical cancer screening Z12.4 Encounter for screening mammogram for malignant neoplasm of breast Z12.31 Breast cancer screening modality: mammogram Colon cancer screening Z12.11 Additional Codes HECTOR-7 Assessment Billing - HECTOR-7 Assessment Tool: HECTOR-7 Assessment 02158 ([id number]) PHQ-9 - 83416 - PHQ-9 Billing: Yes ([id number]) Assessment & Plan Assessment & Plan (1) Annual physical exam: Code(s): Z00.00 - Encounter for general adult medical examination without abnormal findings Category: Medical Plan: As per HPI (2) Borderline high cholesterol: Code(s): E78.9 - Disorder of lipoprotein metabolism, unspecified Category: Medical Plan: Has a history of borderline high total cholesterol. Will continue to follow fasting labs. Advised on low-cholesterol diet. (3) HTN (hypertension): Code(s): I10 - Essential (primary) hypertension Category: Medical Qualifiers: Hypertension type: primary hypertension Qualified Code(s): I10 - Essential (primary) hypertension Plan: Patient's blood pressure acceptable today in office. Has developed a dry cough noted by family. Will transition Ochoa to a Arb as I suspect she has a Ochoa related cough. Goal blood pressures to remain below 140/90 (4) Anoxic brain injury: Code(s): G93.1 - Anoxic brain damage, not elsewhere classified Category: Medical Plan: As per HPI patient suffered an anoxic brain injury several years ago due to an acute cardiac arrest. Has a sequelae secondary to this event including polydipsia, memory issues ect.. Does does have a lot of care from her family including her sister whom presents today with her in office. Has an ICD placed (5) History of implantable cardioverter-defibrillator (ICD) placement: Code(s): Z95.810 - Presence of automatic (implantable) cardiac defibrillator Category: Surgical Plan: As above (6) Cervical cancer screening: Code(s): Z12.4 - Encounter for screening for malignant neoplasm of cervix Category: Medical Plan: Is in need for Pap screening (7) Breast cancer screening: Code(s): Z12.39 - Encounter for other screening for malignant neoplasm of breast Category: Medical Qualifiers: Breast cancer screening modality: mammogram Qualified Code(s): Z12.31 - Encounter for screening mammogram for malignant neoplasm of breast Plan: Willing to do mammogram (8) Colon cancer screening: Code(s): Z12.11 - Encounter for screening for malignant neoplasm of colon Category: Medical Plan: Patient willing to do Cologuard Orders: Orders MM screening mammo BI 10/01/24 Z12.31 - Encounter for screening mammogram for malignant neoplasm of breast Referrals [facility] Referral Z12.4 - Encounter for screening for malignant neoplasm of cervix Cologuard Test Z12.11 - Encounter for screening for malignant neoplasm of colon Medications: Refilled albuterol sulfate 90 mcg/actuation 1 inh inhalation QID PRN 8.5 grams 3RF shortness of breath or wheezing 30 days J45.909 - Unspecified asthma, uncomplicated losartan 25 mg PO DAILY 90 days 90 tabs 1RF I10 - Essential (primary) hypertension losartan 25 mg PO DAILY 90 tabs 1RF 90 days I10 - Essential (primary) hypertension
[2024-10-01 15:51] VITALS: BP 112/82; PULSE 66; TEMP 36.2; O2SAT 97
== END 2024-10-01 16:21 | disposition home or self-care (01) ==
PROVIDERS: PCP Physician Assistant; Visit Provider Physician Assistant
DX: Z00.00 Encounter for general adult medical examination without abnormal findings (principal); E78.9 Disorder of lipoprotein metabolism, unspecified; I10 Essential (primary) hypertension; G93.1 Anoxic brain damage, not elsewhere classified; Z95.810 Presence of automatic (implantable) cardiac defibrillator; Z12.4 Encounter for screening for malignant neoplasm of cervix; Z12.31 Encounter for screening mammogram for malignant neoplasm of breast; Z12.11 Encounter for screening for malignant neoplasm of colon

== ENCOUNTER → 2024-10-01 15:47 | Outpatient (BNVA) | payer OTHER, SELFPAY | PROVIDERS: PCP Physician Assistant; Visit Provider Physician Assistant | DX: Z00.00 Encounter for general adult medical examination without abnormal findings (principal); J45.909 Unspecified asthma, uncomplicated; G40.909 Epilepsy, unspecified, not intractable, without status epilepticus; R05.3 Chronic cough; I10 Essential (primary) hypertension; E78.9 Disorder of lipoprotein metabolism, unspecified; G93.1 Anoxic brain damage, not elsewhere classified; Z95.810 Presence of automatic (implantable) cardiac defibrillator | CPT/HCPCS: 96127; 99396 ==